=== PATIENT | female | born 1975 | race African-American/Black ===

== ENCOUNTER 2016-04-20 07:49 | Emergency (ER) | payer BC ==
[~2016-04-20] VITALS: Ht 157.5 cm; Wt 88.5 kg
--- NOTE | ~2016-04-20 | EKG ---
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
--- NOTE | ~2016-04-20 | EKG ---
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 : 1975 Requested By: Trudy See Order Number: [id number] MD: Stephan Lopez Measurements Intervals [place] Rate: 92 P: 33 [place]: 183 QRS: -5 QRSD: 78 T: 12 QT: 376 QTc: 466 Interpretive Statements Sinus rhythm ST elev, probable normal early repol pattern No previous ECG available for comparison Electronically Signed On 04-21-2016 7:54:22 [employer]STRUCTION [employer]ANT O[employer] by Stephan Lopez [email or web address] <ELECTRONICALLY SIGNED> By: Stephan Lopez MD, [facility] 04/21/16 [id number] Stephan Lopez MD, FACC /EPI
[2016-04-20 09:39] VITALS: BP 133/74
== END 2016-04-20 09:44 | disposition home or self-care (01) ==
LOC: ER 07:49
DX: I47.1 Supraventricular tachycardia (principal)

== ENCOUNTER 2018-10-31 13:27 | Emergency (ER) | payer OTHER ==
[~2018-10-31] VITALS: Ht 167.6 cm; Wt 69.0 kg
[2018-10-31 14:22] VITALS: BP 142/86
[2018-10-31] MEDS ORDERED: NORVASC5 MG PO (14:36)
== END 2018-10-31 14:36 | disposition home or self-care (01) ==
LOC: ER 13:27
DX: R51 Headache (principal); I10 Essential (primary) hypertension; R73.9 Hyperglycemia, unspecified; Z90.710 Acquired absence of both cervix and uterus